=== PATIENT | female | born 1940 | race Caucasian/White ===

== ENCOUNTER 2022-07-07 11:19 | Observation (INO) ==
[2022-07-07 12:34] LABS: Basophils # 0.1 K/mcL (0.0-0.2); Basophils % 0.7 %; Eosinophils # 0.1 K/mcL (0.0-0.6); Eosinophils % 1.6 %; Hematocrit 35.2 % (35.3-44.9); Hemoglobin 10.6 g/dL (11.5-15.4); Immature Granulocytes % 0.4 % (0-4); Lymphocytes # 0.4 K/mcL (0.6-4.6); Lymphocytes % 5.1 %; Mean Corpuscular HGB Conc 30.1 g/dL (31.6-35.5); Mean Corpuscular Volume 99.7 fL (83.0-100.0); Mean Platelet Volume 10.6 fL (9.4-12.4); Monocytes # 0.8 K/mcL (0.0-1.3); Monocytes % 10.1 %; Neutrophils # 6.2 K/mcL (1.6-8.9); Platelet Count 171 K/mcL (140-400); Red Blood Count 3.53 M/mcL (3.82-4.97); Red Cell Distribution Width 15.2 % (11.5-14.5); Segmented Neutrophils % 82.1 %; White Blood Count 7.6 K/mcL (4.3-11.1)
[2022-07-07 13:22] LABS: Calcium 8.8 mg/dL (8.6-10.3); Potassium 3.5 mEq/L (3.5-5.1); Troponin I 0.05 ng/mL (< 0.04)
[2022-07-07] MEDS ORDERED: Furosemide 40 MG/4 ML VIAL IVP ONE (14:36)
[2022-07-07 14:59] LABS: INR 1.4; Prothrombin Time 15.4 Seconds (9.4-12.1)
[2022-07-07 15:02] LABS: Activated Partial Thrombo Time 22.7 Seconds (26.0-36.0)
[2022-07-07] MEDS ORDERED: *HR* HYDROcodone/Acet 5/325 mg TABLET PO ONE (15:49)
[2022-07-07] MEDS ORDERED: Naloxone 0.4 MG/ML INJ IVP PRN (16:20)
[2022-07-07] MEDS ORDERED: Ondansetron 4 MG/2 ML VIAL IVP PRN (16:20)
[2022-07-07] MEDS ORDERED: Melatonin 3 MG TABLET PO PRN (16:20)
[2022-07-07] MEDS ORDERED: *HR* HYDROcodone/Acet 5/325 mg TABLET PO PRN (17:51)
[2022-07-07] MEDS ORDERED: Warfarin perPT PO PRN (18:00)
[2022-07-07] MEDS ORDERED: *HR* Warfarin 3 MG TABLET PO ONE (18:00)
[2022-07-07] MEDS ORDERED: Gabapentin 300 MG CAPSULE PO SCH (21:00)
[2022-07-07] MEDS ORDERED: Metoprolol XL (24 HR) Succ 25 MG TAB.ER.24H PO SCH (21:00)
[2022-07-08] MEDS ORDERED: Levothyroxine 25 MCG TABLET PO SCH (06:30)
[2022-07-08] MEDS ORDERED: Furosemide 40 MG/4 ML VIAL IVP SCH (08:00)
[2022-07-08] MEDS ORDERED: (Leflunomide [Arava] 20 MG Tablet) PO SCH (09:00)
[2022-07-08] MEDS ORDERED: DICLOFENAC SODIUM TP SCH (09:00)
[2022-07-08] MEDS ORDERED: Folic Acid 1 MG TABLET PO SCH (09:00)
== END 2022-07-07 23:59 | disposition other institution (70) ==
LOC: EMEROOARM 11:19 → 2ANU 11:19
PROVIDERS: ADMIT Internal Medicine; ATTEND Internal Medicine